=== PATIENT | female | born 1970 | race Caucasian/White ===

== ENCOUNTER 2021-10-12 12:10 | Emergency (ER) | payer SELFPAY ==
[~2021-10-12] VITALS: Ht 165.1 cm; Wt 67.1 kg
[2021-10-12 12:28] VITALS: BP 154/104
--- NOTE | 2021-10-12 15:10 | NUR ---
Cyrus welch in [facility] - 10/12/21 at 1511 by [email or web address] PT AMBULATED TO BED 1
--- NOTE | 2021-10-12 15:56 | NUR ---
NO NURSING INTERVENTIONS PROVIDED
[2021-10-12 15:57] VITALS: BP 160/97
--- NOTE | 2021-10-12 15:57 | NUR ---
Patient discharged with v/s stable. Written and verbal after care instructions ABOUT PANIC ATTACK given and explained. Patient verbalized understanding. Ambulatory with steady gait. All questions addressed prior to discharge. Advised to follow up with PMD.
== END 2021-10-12 15:57 | disposition home or self-care (01) ==
LOC: MED 12:10
DX: F41.9 Anxiety disorder, unspecified (principal); R03.0 Elevated blood-pressure reading, without diagnosis of hypertension
CPT/HCPCS: 71045; 99283